=== PATIENT | female | born 1985 | race Caucasian/White ===

== ENCOUNTER 2018-02-04 16:31 | Emergency (ER) | payer OTHER ==
[~2018-02-04] VITALS: Ht 177.8 cm; Wt 136.1 kg
[2018-02-04 17:23] LABS: BASOPHILS 0.7 % (0.0-2.0); EOSINOPHILS 2.1 % (0.0-3.0); HEMOGLOBIN 14.1 gm/dL (12.0-15.0); LYMPHOCYTES 19.7 % (24.0-44.0); MCH 29.8 pg (26.0-34.0); MCHC 35.2 g/dL (28.0-37.0); MCV 84.5 fL (80.0-100.0); MONOCYTES 6.3 % (1.0-8.0); PLATELET COUNT 299 thou/uL (150-400); POLYS 71.2 % (36.0-66.0); RBC 4.73 mil/uL (4.20-5.00); WBC 8.4 thou/uL (4.0-11.0)
[2018-02-04 17:27] LABS: CALCIUM 9.2 mg/dL (8.5-10.1); CREATININE 0.6 mg/dL (0.6-1.0); POTASSIUM 3.6 mmol/L (3.5-5.1)
[2018-02-04 17:34] LABS: ALBUMIN 4.2 g/dL (3.4-5.0); TOTAL BILIRUBIN 0.3 mg/dL (<0.1-1.0); TOTAL PROTEIN 7.5 g/dL (6.4-8.2)
[2018-02-04] MEDS ORDERED: MORPHINE SULFAT15 M3 PO (21:09)
[2018-02-04] MEDS ORDERED: ONDANSETRON HCL4 M2 PO (21:09)
[2018-02-04 21:41] VITALS: BP 123/77
== END 2018-02-04 21:41 | disposition home or self-care (01) ==
LOC: ER 16:31
PROVIDERS: Emergency Medicine
DX: R51 Headache (principal); R42 Dizziness and giddiness; R11.2 Nausea with vomiting, unspecified